=== PATIENT | female | born 1985 | race Two or more races ===

== ENCOUNTER 2024-09-19 18:28 | Emergency (ER) | payer OTHER ==
[~2024-09-19] VITALS: Ht 160 cm; Wt 117.9 kg
[2024-09-19] MEDS ORDERED: CEFTRIAXONE SODIUM 1,000 MG VIAL ONE (19:59)
[2024-09-19] MEDS ORDERED: METHYLPREDNISOLONE SOD SUCC 125 MG VIAL ONE (19:59)
[2024-09-19 21:03] LABS: HEMATOCRIT 46.7 % (36.0-45.00); HEMOGLOBIN 15.4 g/dL (12.0-15.00); MEAN CELL VOLUME 79.2 fL (80.00-100.00); MEAN CORPUSCULAR HEMOGLOBIN 26.2 pg (27.00-32.0); MEAN CORPUSCULAR HGB CONC 33.1 g/dl (32.0-36.0); PLATELET COUNT 293 K/uL (150-450); RED BLOOD COUNT 5.89 M/uL (4.00-6.00); RED CELL DISTRIBUTION WIDTH 16.4 % (11.5-14.5)
== END 2024-09-19 22:11 | disposition home or self-care (01) ==
LOC: ER 18:28
PROVIDERS: General Practice
DX: R53.81 Other malaise (principal); J06.9 Acute upper respiratory infection, unspecified; Z20.822 Contact with and (suspected) exposure to COVID-19